=== PATIENT | female | born 1970 | race American Indian/Alaskan Native ===

== ENCOUNTER 2019-01-25 02:13 | Emergency (ER) | payer SELFPAY ==
[2019-01-25] MEDS ORDERED: DECADRON IM ONE (08:15)
[2019-01-25] MEDS ORDERED: TORADOL IM ONE (08:15)
[2019-01-25] MEDS ORDERED: BICILLIN L-A IM ONE (08:15)
--- NOTE | 2019-01-25 08:22 | Emergency Department Report ---
ED ENT HPI - General Chief complaint: Sore Throat Stated complaint: THROAT/HEADACHE/BODY SORE Time Seen by Provider: 01/25/19 08:11 Source: patient Mode of arrival: Ambulatory Limitations: No Limitations - History of Present Illness Initial comments: Patient is a 48-year-old female who is here secondary to a sore throat. Patient states she's had these symptoms for approximately 3 days she has 8 out of 10 pain when swallowing. Patient also states she has has had chills and fever as well. She denies any cough. Patient states that she has bilateral ear pressure. Patient denies any nausea vomiting or diarrhea. She does state she has a throbbing headache as well as 4 out of 10 in severity. - Related Data Previous Rx's Medication Instructions Recorded Last Taken Type HYDROcodone/ACETAMINOPHEN 15 ml PO Q6H PRN #150 solution 01/25/19 Unknown Rx [Hydrocodon-Acetamin 7.5-325/15] predniSONE [Deltasone] 20 mg PO QDAY #5 tab 01/25/19 Unknown Rx ED Dental HPI - General Chief complaint: Sore Throat Stated complaint: THROAT/HEADACHE/BODY SORE Time Seen by Provider: 01/25/19 08:11 Source: patient Mode of arrival: Ambulatory Limitations: No Limitations - Related Data Previous Rx's Medication Instructions Recorded Last Taken Type HYDROcodone/ACETAMINOPHEN 15 ml PO Q6H PRN #150 solution 01/25/19 Unknown Rx [Hydrocodon-Acetamin 7.5-325/15] predniSONE [Deltasone] 20 mg PO QDAY #5 tab 01/25/19 Unknown Rx ED Review of Systems ROS: Stated complaint: THROAT/HEADACHE/BODY SORE Other details as noted in HPI Comment: All other systems reviewed and negative ED Past Medical Hx - Past Medical History Previous Medical History?: No - Surgical History Past Surgical History?: Yes Additional Surgical History: - Social History Smoking Status: Never Smoker Substance Use Type: None - Medications Home Medications: Home Medications Medication Instructions Recorded Confirmed Last Taken Type HYDROcodone/ACETAMINOPHEN 15 ml PO Q6H PRN #150 solution 01/25/19 Unknown Rx [Hydrocodon-Acetamin 7.5-325/15] predniSONE [Deltasone] 20 mg PO QDAY #5 tab 01/25/19 Unknown Rx ED Physical Exam - General Limitations: No Limitations General appearance: alert, in no apparent distress - Head Head exam: Present: atraumatic, normocephalic - Eye Eye exam: Present: normal appearance - ENT ENT exam: Present: mucous membranes moist - Expanded ENT Exam Expanded TM/Canal exam: Bulging: Left TM, Right TM Mouth exam: Present: tongue normal. Absent: trismus, muffled voice Throat exam: Positive: tonsillar erythema, tonsillar exudate, other (uvula is midline). Negative: R peritonsillar mass, L peritonsillar mass - Neck Neck exam: Present: normal inspection, lymphadenopathy (anterior cervical) - Respiratory Respiratory exam: Present: normal lung sounds bilaterally. Absent: respiratory distress, wheezes, rales, rhonchi - Cardiovascular Cardiovascular Exam: Present: regular rate, normal rhythm. Absent: systolic murmur, diastolic murmur, rubs, gallop - GI/Abdominal GI/Abdominal exam: Present: soft, normal bowel sounds. Absent: distended, tenderness, guarding, rebound - Extremities Exam Extremities exam: Present: normal inspection - Back Exam Back exam: Present: normal inspection - Neurological Exam Neurological exam: Present: alert, oriented X3 - Psychiatric Psychiatric exam: Present: normal affect, normal mood - Skin Skin exam: Present: warm, dry, intact, normal color. Absent: rash ED Course Vital Signs 01/25/19 02:21 Temperature 99.3 F Pulse Rate 98 H Respiratory 18 Rate Blood Pressure 138/86 O2 Sat by Pulse 97 Oximetry ED Medical Decision Making - Medical Decision Making Patient meets [facility] criteria for empiric treatment for pharyngitis. Patient be discharged home. Critical care attestation.: If time is entered above; I have spent that time in minutes in the direct care of this critically ill patient, excluding procedure time. ED Disposition Clinical Impression: Exudative pharyngitis Disposition: DC-01 TO HOME OR SELFCARE Is pt being admited?: No Does the pt Need Aspirin: No Condition: Stable Instructions: Pharyngitis (ED) Referrals: JOÃO PRO MD [Primary Care Provider] - 3-5 Days Forms: Work/School Release Form(ED) Time of Disposition: 08:24
[2019-01-25 09:22] VITALS: BP 144/95
== END 2019-01-25 09:21 | disposition home or self-care (01) ==
LOC: ED 02:13
DX: J02.9 Acute pharyngitis, unspecified (principal)
CPT/HCPCS: 96372; 99282; J0561; J1100; J1885